=== PATIENT | female | born 1955 | race Caucasian/White ===

== ENCOUNTER 2017-02-07 06:39 | Inpatient (IN) | payer OTHER ==
[2017-01-08 14:50] VITALS: BMI 24.0
--- NOTE | 2017-01-08 15:38 | PAT Medication Instructions ---
Service Date Jan 08, 2017. Current Home Medication List Cyanocobalamin (Vitamin B-12 Inj), 1 ML IM EVERY OTHER MONTH Folic Acid (Folvite), 1 MG PO QAM Gabapentin (Neurontin), 800 MG PO BID Hydrocodon/Acetaminophen 7.5MG/300MG (Vicodin Es (7.5MG/300MG)), 1 TAB PO QID Ibuprofen (Advil), 400 MG PO QID PRN for Pain Omeprazole (Prilosec), 1 TAB PO QD@16 Thiamine Hcl (Vitamin B-1), 100 MG PO QAM Medication Instructions For Your Scheduled Surgery Cyanocobalamin (Vitamin B-12 Inj), 1 ML IM EVERY OTHER MONTH (continue as usual) - Hold the following medications 7 days prior to surgery per surgeon instructions : Ibuprofen (Advil), 400 MG PO QID PRN for Pain - Hold the following medications the morning of surgery: Thiamine Hcl (Vitamin B-1), 100 MG PO QAM Folic Acid (Folvite), 1 MG PO QAM - Take the following medications the morning of surgery with a sip of water: Hydrocodon/Acetaminophen 7.5MG/300MG (Vicodin Es (7.5MG/300MG)), 1 TAB PO QID (can take up to four hours prior to the surgery if needed) Gabapentin (Neurontin), 800 MG PO BID - Take the following medications as scheduled the afternoon/night before surgery : Omeprazole (Prilosec), 1 TAB PO QD@16 Hydrocodon/Acetaminophen 7.5MG/300MG (Vicodin Es (7.5MG/300MG)), 1 TAB PO QID Gabapentin (Neurontin), 800 MG PO BID If you have any questions please call us at [phone] or [phone] ( Mariah) or [phone]
[2017-01-08 16:19] LABS: BASO % 0.6 %; BASO ABS # 0.05 K/uL (0-0.2); EOS % 1.5 %; HEMATOCRIT 47.7 % (37-47); IG% 0.4 %; LYMPH % 23.2 %; LYMPH ABS # 1.82 K/uL (1.2-3.4); MEAN CELL VOLUME 112.2 fL (80-100); MEAN CORPUSCULAR HEMOGLOBIN 36.9 pg (25-34); MEAN CORPUSCULAR HGB CONC 32.9 g/dl (32-36); MEAN PLATELET VOLUME 9.1 fL (7.4-10.4); MONO % 7.2 %; NEUT % 67.1 %; PLATELET COUNT 225 K/uL (130-400); RED BLOOD COUNT 4.25 M/uL (4.2-5.4); WHITE BLOOD COUNT 7.83 K/uL (4.8-10.8)
--- NOTE | 2017-01-08 16:25 | DIAGNOSTIC IMAGING REPORT ---
CHEST 2 VIEWS ROUTINE CLINICAL HISTORY: PAT preoperative evaluation COMPARISON STUDY: 07/03/2016 FINDINGS: Chronic parenchymal fibrotic change throughout both hemithoraces. No acute infiltrate. Mild stable cardiomegaly. IMPRESSION: Chronic parenchymal fibrosis. Mild stable cardiomegaly. No acute process. Electronically signed by: Yovany Tolentino M.D. 01/08/2017 4:24 PM Dictated Date/Time: 01/08/2017 4:23 PM
[2017-01-08 16:28] LABS: URINE APPEARANCE CLEAR (CLEAR); URINE BILIRUBIN NEG (NEG); URINE COLOR YELLOW; URINE NITRITE NEG (NEG); URINE SPECIFIC GRAVITY 1.011 (1.000-1.030); UROBILINOGEN NEG (NEG)
[2017-01-08 16:31] LABS: MANUAL MICROSCOPIC REQUIRED? NO; REVIEW REQ? NO
[2017-01-08 16:32] LABS: PARTIAL THROMBOPLASTIN RATIO 1.1
[2017-01-08 16:37] LABS: BUN/CREATININE RATIO 10.9 (10-20); CALCIUM 8.3 mg/dl (8.5-10.1); CREATININE 0.65 mg/dl (0.60-1.20); POTASSIUM 4.3 mmol/L (3.5-5.1)
[2017-01-08 17:03] LABS: COMPLETE YES; STOMATOCYTE 1+
[2017-01-08 17:24] LABS: ESTIMATED AVERAGE GLUCOSE 105 mg/dl; HA1C FLAG Normal (Normal)
--- NOTE | 2017-01-10 07:47 | History and Physical ---
History & Physical Date of Service Jan 10, 2017. History & Physical PROCEDURE: Right knee replacement. HISTORY OF PRESENT ILLNESS: Alex is a zach 61-year-old female who presents for preoperative evaluation prior to right knee replacement. She states she has been having pain in this knee for many years now, which has gradually worsened. It has now gotten to the point that it is affecting her daily activities including walking, standing, going up and down steps. She has had previous knee arthroscopy performed in the , she also takes hydrocodone for pain. At this point in time, has failed conservative measures and would like to proceed with right knee replacement. Had her left knee replacement in July 2016 and is doing well. PAST MEDICAL HISTORY: 1. GERD. 2. History of malignant melanoma. ALLERGIES: 1. MORPHINE. 2. ETODOLAC. CURRENT MEDICATIONS: 1. Gabapentin 600 mg daily. 2. Hydrocodone 7.5/325 one to two tablets every 4-6 hours as needed. 3. Folic acid daily. 4. B complex vitamin. 5. Vitamin B12 one injection every month. PAST SURGICAL HISTORY: 1. Left knee arthroscopy in . 2. ORIF of wrist fracture in March 2016. 3. Hysterectomy. 4. . 5. Left total knee replacement July 2016 FAMILY HISTORY: Noncontributory. SOCIAL HISTORY: The patient denies a history of smoking or tobacco use. Minimal alcohol consumption. REVIEW OF SYSTEMS: Otherwise negative. Please see HPI for pertinent positives. PHYSICAL EXAMINATION: GENERAL: Zach 61-year-old female in no acute distress, alert and oriented x3. She is 5 foot 7, weighs 155 pounds. VITAL SIGNS: Blood pressure is 126/82. BMI is 24.28. HEENT: Normocephalic, atraumatic. CARDIAC: Regular rate and rhythm. No murmurs or gallops appreciated. Resting pulse 80 beats per minute. LUNGS: Clear to auscultation without rales or wheeze bilaterally. ABDOMEN: Soft and nontender. Bowel sounds present. EXTREMITIES: right lower extremity is neurovascularly intact. Calf is soft and nontender. DP pulse +2. Demonstrates good quad tone. Straight leg raise without lag. There is no erythema or warmth. Has mild effusion. Overall, has varus alignment. Positive crepitation with motion, range of motion is 0/3/120. IMAGING: Reviewed of the right knee showed findings consistent with degenerative joint disease including joint space narrowing, subchondral sclerosis and peripheral osteophytes noted which is greatest over the medial compartment. IMPRESSION: 1. Right knee degenerative joint disease. 2. Gastroesophageal reflux disease. 3. Malignant melanoma. PLAN: Further care discussed with the patient. At this point in time, would like to proceed with right knee replacement on 02/07/17. We will place on aspirin 81 mg p.o. b.i.d. for a month postop. Also discharge home with home health physical therapy.
--- NOTE | 2017-01-19 14:33 | History and Physical ---
History & Physical Date of Service Jan 19, 2017. History & Physical PROCEDURE: Right knee replacement. HISTORY OF PRESENT ILLNESS: Alex is a pleasant 61-year-old female who presents for preoperative evaluation prior to right knee replacement. She states she has been having pain in this knee for many years now, which has gradually worsened. It has now gotten to the point that it is affecting her daily activities including walking, standing, going up and down steps. At this point in time, has failed conservative measures and would like to proceed with right knee replacement. PAST MEDICAL HISTORY: 1. GERD. 2. History of malignant melanoma. ALLERGIES: 1. MORPHINE. 2. ETODOLAC. CURRENT MEDICATIONS: 1. Gabapentin 600 mg daily. 2. Folic acid daily. 3. B complex vitamin. 4. Vitamin B12 one injection every month. PAST SURGICAL HISTORY: 1. Left knee arthroscopy in . 2. ORIF of wrist fracture in March 2016. 3. Hysterectomy. 4. . 5. left knee replacement July 2016 FAMILY HISTORY: Noncontributory. SOCIAL HISTORY: The patient denies a history of smoking or tobacco use. Minimal alcohol consumption. REVIEW OF SYSTEMS: Otherwise negative. Please see HPI for pertinent positives. PHYSICAL EXAMINATION: GENERAL: Zach 61-year-old female in no acute distress, alert and oriented x3. She is 5 foot 7, weighs 155 pounds. VITAL SIGNS: Blood pressure is 132/84. BMI is 24.28. HEENT: Normocephalic, atraumatic. CARDIAC: Regular rate and rhythm. No murmurs or gallops appreciated. Resting pulse 80 beats per minute. LUNGS: Clear to auscultation without rales or wheeze bilaterally. ABDOMEN: Soft and nontender. Bowel sounds present. EXTREMITIES: Right lower extremity is neurovascularly intact. Calf is soft and nontender. DP pulse +2. Demonstrates good quad tone. Straight leg raise without lag. There is no erythema or warmth. Has mild effusion. Overall, has varus alignment. Positive crepitation with motion, range of motion is 0/3/120. IMAGING: Reviewed of the right knee showed findings consistent with degenerative joint disease including joint space narrowing, subchondral sclerosis and peripheral osteophytes noted which is greatest over the medial compartment. IMPRESSION: 1. Right knee degenerative joint disease. 2. Gastroesophageal reflux disease. 3. Malignant melanoma. PLAN: Further care discussed with the patient. At this point in time, would like to proceed with right knee replacement on 02/07/17. We will place on aspirin 81 mg p.o. b.i.d. for a month postop. Also discharge home with home health physical therapy.
[~2017-02-07] VITALS: Ht 170.2 cm; Wt 71.9 kg
[2017-02-07] VITALS (8 sets, daily range): BP systolic 130–151; BP diastolic 85–98; PULSE 86–99; TEMP 36.6–36.9; O2SAT 90–95; Ht 170.2 cm; Wt 71.9 kg
[~2017-02-07 06:39] MED LIST: ACETAMINOPHEN 500 MG TAB PO SCH; CYAN3INJ IM; CeleBREX 200 MG CAP PO SCH; DEXAMETHASONE 4 MG TAB PO SCH; FAMOTIDINE 20 MG TAB PO SCH; FOLI1TAB7 PO; GABAPENTIN 300 MG CAP PO SCH; HYDR-3714 PO; IBUP-1050 PO; LACTATED RINGER'S 1000ML IV SCH; LACTATED RINGER'S 500 ML IV SCH; METOCLOPRAMIDE HCL 10 MG TAB PO SCH; NRN/600 PO; OMEP40CA41 PO; ROPIVACAINE 5MG/ML 30 ML 150 MG, BUPIVACAINE/EPINEPHR 0.5% MPF 30 ML, KETOROLAC TROMETH... INFIL SCH; THIA100T13 PO
--- NOTE | 2017-02-07 06:51 | History & Physical Bridge Note ---
H&P Re-Evaluation Bridge Note: I have examined the patient, reviewed the History & Physical and in the interval since the performance of the History & Physical I have noted the following changes of clinical significance: No changes noted
[2017-02-07] MEDS ORDERED: ACET-1256 PO (07:23)
[2017-02-07] MEDS ORDERED: PROPOFOL IV EMULSION 10 MG/ML 20 ML VIAL IV ONE (08:02)
[2017-02-07] MEDS ORDERED: FENTANYL CITRATE INJ 50 MCG/1 ML 2 ML VIAL ONE (08:03)
[2017-02-07] MEDS ORDERED: MIDAZOLAM HCL 1 MG/ML 2ML VIAL ONE ×3 (08:03→08:58)
[2017-02-07] MEDS ORDERED: BUPIVACAINE 0.25% 30 ML VIAL ONE (08:04)
[2017-02-07] MEDS ORDERED: BUPIVACAINE 0.5 % 5 MG/1 ML PF 10ML VIAL ONE (08:04)
[2017-02-07] MEDS: TRANEXAMIC ACID INJ 1,000 MG in SODIUM CHLORIDE 0.9% 100ML 100 ML IV SCH ×2 (08:55→13:11)
[2017-02-07] MEDS: CEFAZOLIN 2000 MG/60 ML D5W 60 ML IV SCH ×2 (08:56→10:58)
[2017-02-07] MEDS ORDERED: ORTHO JOINT ANESTHETIC ONE (08:57)
[2017-02-07] MEDS ORDERED: POVIDONE-IODINE OP SOLN 30 ML BTL ONE (08:57)
[2017-02-07] MEDS ORDERED: BACITRACIN 50000 UNIT VIAL ONE (08:58)
[2017-02-07] MEDS ORDERED: ONDANSETRON INJ 2 MG/ML 2 ML VIAL IV PRN ×2 (09:45→11:15)
[2017-02-07] MEDS ORDERED: ATROPINE SULFATE 0.1 MG/ML 5ML SYR IV PRN (09:45)
[2017-02-07] MEDS ORDERED: HYDROmorphone INJ 1 MG/ML SYR IV PRN (09:45)
[2017-02-07] MEDS ORDERED: EpHEDrine SULFATE INJ 50 MG/ML AMP IV PRN (09:45)
[2017-02-07] MEDS ORDERED: KETAMINE HCL INJ 50 MG/ML 10 ML VIAL ONE (09:48)
[2017-02-07] MEDS ORDERED: ONDANSETRON INJ 2 MG/ML 2 ML VIAL ONE (10:19)
--- NOTE | 2017-02-07 10:42 | [facility] Post Operative Brief Note ---
Immediate Operative Summary Operative Date Feb 07, 2017. Pre-Operative Diagnosis Right Knee Degenerative Joint Disease Post-Operative Diagnosis Same as preop Procedure(s) Performed Right Total Knee Arthroplasty Surgeon Dr. Cooper Enamel Sprayer Surgeon(s) Yovany Kim PA-C Estimated Blood Loss 5 ml Findings severe djd knee Specimens A. Right Knee Bone and Tissue Complication(s) None Disposition Recovery Room / PACU
[2017-02-07] MEDS ORDERED: MAGNESIUM HYDROXIDE SUSP 30 ML UDC PO PRN (11:15)
[2017-02-07] MEDS ORDERED: ALUMINUM/MAGNESIUM/SIMETH (MAALOX MAX) 30 ML UDC PO PRN (11:15)
[2017-02-07] MEDS ORDERED: ZOLPIDEM TARTRATE 5 MG TAB PO PRN (11:15)
[2017-02-07] MEDS ORDERED: SOD PHOSPHATE/SOD BIPHOSPHATE ENEMA 132 ML BTL PR PRN (11:15)
[2017-02-07] MEDS ORDERED: BISACODYL 10 MG SUPP PR PRN (11:15)
--- NOTE | 2017-02-07 11:31 | OPERATIVE REPORT ---
DATE OF OPERATION: 02/07/2017 PREOPERATIVE DIAGNOSIS: Severe end-stage tricompartmental degenerative joint disease, right knee. POSTOPERATIVE DIAGNOSIS: Severe end-stage tricompartmental degenerative joint disease, right knee. PROCEDURE: Right total knee arthroplasty utilizing Weaver \T\ Nephew Journey II patient matched total knee arthroplasty size 5 femur, 3 tibia, 12 poly, 29 oval patella. SURGEON: Dr. Cooper. DONOR RELATIONS MANAGER: Yovany Kim PA-C, who was necessary for prepping, draping, retraction, wound closure of deep fascia, subcutaneous skin and was necessary for the case. ESTIMATED BLOOD LOSS: 5 mL. COMPLICATIONS: None. TOURNIQUET TIME: 40 minutes. HISTORY OF PRESENT ILLNESS: The patient presents as a very pleasant 61-year-old white female being seen and evaluated. She has recently undergone a left total knee arthroplasty successfully. She presents today for right total knee arthroplasty after failing attempts at conservative management including physical therapy, anti-inflammatories, relative rest, activity modification and bracing. She presents for right total knee arthroplasty. At the time of surgery, the above findings were noted. OPERATION AND FINDINGS: PROCEDURE: The patient was properly prepped and draped in supine position for total knee arthroplasty after identifying the appropriate surgical site. An anterior midline incision was made through the subcutaneous tissues down to the region of the extensor mechanism. A medial parapatellar incision was subsequently made. Meticulous hemostasis was obtained and performed at all times. The patella having been subluxed lateralward, medial and lateral meniscal remnants were excised. The patellar cut was then initially made and was sized to the appropriate size. After subluxing the tibia forward the appropriate meniscal fragments having been removed the distal femur was then cut first utilizing a Weaver \T\ Nephew block. The distal femoral cuts and chamfer cuts were all made under direct visualization and the proximal tibial osteotomy cut was also made utilizing Weaver \T\ Nephew blocks and checked with an extramedullary guide. The appropriate trial components on the femur and tibia were placed. Appropriate trial spacers were used to check flexion and extension gaps. With flexion and extension gaps being equal, the components were then subsequently after thorough irrigation and debridement lavage components were then subsequently cemented in the following order: femur, tibia and patella. Exparel was used for intraoperative anesthesia, the medial parapatellar incision was closed utilizing #1 Vicryl, subQ was closed with 2-0 Vicryl, skin was closed with skin clips. A sterile compression dressing was placed. The patient was taken to recovery room in stable condition. Due to the complex nature of the procedure, the entire surgery was performed with the operational assistance of Yovany Kim PA-C. The first assistant manager, under direct supervision, was involved in the actual performance of all aspects of the surgical procedure including hemostasis, tissue retraction and incision, instrument management, patient positioning, and wound closure. I attest to the content of the Intraoperative Record and any orders documented therein. Any exceptions are noted below. ELIZABETH
--- NOTE | 2017-02-07 12:15 | DIAGNOSTIC IMAGING REPORT ---
TWO VIEWS RIGHT KNEE CLINICAL HISTORY: Postoperative examination. FINDINGS: AP and crosstable lateral portable views of the right knee are obtained. A right knee arthroplasty is in near anatomic alignment. There has been undersurface remodeling of the patella. No acute fracture is seen. There are expected postoperative changes around the knee including skin clips, a surgical drain, soft tissue edema, and subcutaneous gas. IMPRESSION: Expected postoperative changes status post right knee arthroplasty. No acute fracture is seen. Electronically signed by: Catarino Lewis M.D. 02/07/2017 12:13 PM Dictated Date/Time: 02/07/2017 12:13 PM
--- NOTE | 2017-02-07 13:46 | Anesthesiology Progress Note ---
Anesthesia Post Op Note Date & Time Feb 07, 2017 at 13:45 Vital Signs Pain Intensity: 0.0 Vital Signs Past 12 Hours Date Time Temp Pulse Resp B/P Pulse Ox O2 Delivery O2 Flow Rate FiO2 02/07/17 13:15 99 130/85 02/07/17 12:40 89 18 143/93 91 Nasal Cannula 2.0 02/07/17 12:10 95 Nasal Cannula 4.0 02/07/17 12:10 95 Nasal Cannula 4.0 02/07/17 12:10 36.6 86 16 130/86 95 Nasal Cannula 4.0 02/07/17 11:55 36.8 91 16 128/87 96 Nasal Cannula 4 02/07/17 11:45 36.8 88 16 135/87 96 Nasal Cannula 4 02/07/17 11:35 89 16 129/89 93 Nasal Cannula 4 02/07/17 11:25 90 16 131/89 99 Mask 10 02/07/17 11:15 88 16 139/91 99 Mask 10 02/07/17 11:09 36.3 94 16 130/88 93 Mask 10 02/07/17 07:37 36.9 96 22 135/98 91 Room Air Notes Mental Status: alert / awake / arousable, participated in evaluation Pt Amnestic to Procedure: Yes Nausea / Vomiting: adequately controlled Pain: adequately controlled Airway Patency, RR, SpO2: stable & adequate BP & HR: stable & adequate Hydration State: stable & adequate Anesthetic Complications: no major complications apparent
[2017-02-07] MEDS: OXYCODONE HCL IR 5 MG TAB (IMMEDIATE RELEASE) PO PRN ×2 (13:58→19:54)
[2017-02-07] MEDS: D5W AND 1/2NSS + 20MEQ KCL 1,000 ML IV SCH ×2 (14:11→23:28)
[2017-02-07] MEDS: CEFAZOLIN IV 2,000 MG in DEXTROSE 5% 50ML 50 ML IV SCH (18:12)
[2017-02-07] MEDS: KETOROLAC TROMETHAMINE 30 MG/ML VIAL IV. PRN (18:24)
[2017-02-07] MEDS: ASPIRIN 81 MG ECTAB PO SCH (20:53)
[2017-02-07] MEDS: DOCUSATE SODIUM 100 MG CAP PO SCH (20:53)
[2017-02-07] MEDS: OXYCODONE HCL 10 MG TABCR (OXYCONTIN) PO SCH (20:53)
[2017-02-07] MEDS: SENNA 8.6 MG TAB PO SCH (20:54)
[2017-02-07] MEDS ORDERED: CeleBREX 200 MG CAP PO SCH (21:00)
[2017-02-07] MEDS: GABAPENTIN 800 MG TAB PO SCH (23:28)
[2017-02-08] MEDS: CEFAZOLIN IV 2,000 MG in DEXTROSE 5% 50ML 50 ML IV SCH (02:21)
[2017-02-08] MEDS: KETOROLAC TROMETHAMINE 30 MG/ML VIAL IV. PRN (02:22)
[2017-02-08 03:35] VITALS: BP 123/77; PULSE 90; TEMP 36.8; O2SAT 93
[2017-02-08] MEDS ORDERED: NURSING DECISION MEDICATION ORDER SCH ×2 (04:45→11:00)
[2017-02-08] MEDS ORDERED: COUGH DROP (SUGAR FREE) LOZ 24 LOZ/1 BOX PO PRN (05:00)
[2017-02-08 06:33] LABS: HEMATOCRIT 44.1 % (37-47); MEAN CELL VOLUME 107.3 fL (80-100); MEAN CORPUSCULAR HEMOGLOBIN 36.5 pg (25-34); MEAN PLATELET VOLUME 9.2 fL (7.4-10.4); PLATELET COUNT 166 K/uL (130-400); RED BLOOD COUNT 4.11 M/uL (4.2-5.4); WHITE BLOOD COUNT 13.43 K/uL (4.8-10.8)
[2017-02-08 06:43] LABS: INR 0.9 (0.9-1.1)
[2017-02-08 07:05] LABS: BUN/CREATININE RATIO 9.1 (10-20); CALCIUM 8.5 mg/dl (8.5-10.1); CREATININE 0.71 mg/dl (0.60-1.20); POTASSIUM 4.8 mmol/L (3.5-5.1)
[2017-02-08 07:54] VITALS: BP 126/78; PULSE 89; TEMP 36.9; O2SAT 91
--- NOTE | 2017-02-08 08:10 | Anesthesiology Progress Note ---
Anesthesia Post Op Note Date & Time Feb 08, 2017 at 08:09 Vital Signs Pain Intensity: 7.0 Vital Signs Past 12 Hours Date Time Temp Pulse Resp B/P Pulse Ox O2 Delivery O2 Flow Rate FiO2 02/08/17 07:54 36.9 89 16 126/78 91 Room Air 02/08/17 03:35 36.8 90 18 123/77 93 Room Air 02/07/17 23:45 36.6 88 18 140/87 91 Room Air Notes Mental Status: alert / awake / arousable, participated in evaluation Pt Amnestic to Procedure: Yes Nausea / Vomiting: adequately controlled Pain: adequately controlled Airway Patency, RR, SpO2: stable & adequate BP & HR: stable & adequate Hydration State: stable & adequate Neuraxial Anesthesia: sensory block resolved Anesthetic Complications: no major complications apparent
[2017-02-08] MEDS: ASPIRIN 81 MG ECTAB PO SCH ×2 (09:08→21:19)
[2017-02-08] MEDS: OXYCODONE HCL 10 MG TABCR (OXYCONTIN) PO SCH ×2 (09:08→21:17)
[2017-02-08] MEDS: DOCUSATE SODIUM 100 MG CAP PO SCH ×2 (09:08→21:19)
[2017-02-08] MEDS: PANTOprazole SOD 40 MG TAB PO SCH (09:08)
[2017-02-08] MEDS: THIAMINE HCL 100 MG TAB PO SCH (09:08)
[2017-02-08] MEDS: MULTIVITAMIN TAB PO SCH (09:09)
[2017-02-08] MEDS: OXYCODONE HCL IR 5 MG TAB (IMMEDIATE RELEASE) PO PRN ×4 (09:17→22:15)
[2017-02-08 11:36] VITALS: BP 114/74; PULSE 87; TEMP 36.7; O2SAT 95
[2017-02-08 11:46] VITALS: BP 131/70; PULSE 98; O2SAT 94
[2017-02-08] MEDS: GABAPENTIN 800 MG TAB PO SCH ×2 (12:04→23:59)
[2017-02-08 15:10] VITALS: BP 121/80; PULSE 86; TEMP 36.7; O2SAT 92
--- NOTE | 2017-02-08 16:40 | Orthopedic Progress Note ---
Orthopedic Progress Note Date of Service Feb 08, 2017. Subjective Post OP Day: 1 Reports: feeling well, Denies: SOB, calf pain, chest pain, light headedness, nausea / vomiting Objective calves soft nontender, N/V intact, dressing C/D/I, A&O x3, toes mobile, hemovac drainage (350ml to date) Date Time Temp Pulse Resp B/P Pulse Ox O2 Delivery O2 Flow Rate FiO2 02/08/17 15:10 36.7 86 20 121/80 92 Room Air 02/08/17 11:46 98 94 02/08/17 11:36 36.7 87 16 114/74 95 Room Air 02/08/17 09:00 Room Air 02/08/17 07:54 36.9 89 16 126/78 91 Room Air 02/08/17 03:35 36.8 90 18 123/77 93 Room Air 02/07/17 23:45 36.6 88 18 140/87 91 Room Air 02/07/17 20:00 Room Air 02/07/17 19:45 36.6 87 18 151/98 91 Room Air Laboratory Results 24 Hours: Test 02/08/17 06:15 Hematocrit 44.1 % Hemoglobin 15.0 g/dL Prothromb Time International Ratio 0.9 Prothrombin Time 10.0 SECONDS Assessment & Plan Assessment: POD 1 s/p Right TKA Plan: PT/OT Planning for dc tomorrow with Home Health Services. Inhouse Planning Pain Management: Oxycontin, Oxy IR DVT Prophylaxis: TEDs, SCDs, ASA Discharge Planning Discharge Planning: home with home health Pain Management: Oxycontin, Oxy IR DVT Prophylaxis: TEDs, ASA
[2017-02-08] MEDS ORDERED: NURSING VERBAL MED ORDER ONE (20:15)
[2017-02-08] MEDS ORDERED: OXYCODONE HCL 10 MG TABCR (OXYCONTIN) PO ONE (20:45)
[2017-02-08] MEDS: SENNA 8.6 MG TAB PO SCH (21:19)
[2017-02-08 23:47] VITALS: BP 122/84; PULSE 90; TEMP 36.7; O2SAT 92
[2017-02-09] MEDS: OXYCODONE HCL IR 5 MG TAB (IMMEDIATE RELEASE) PO PRN ×4 (02:04→14:28)
[2017-02-09 06:38] VITALS: BP 102/67; PULSE 92; TEMP 36.7; O2SAT 92
[2017-02-09] MEDS: GABAPENTIN 800 MG TAB PO SCH (07:42)
[2017-02-09] MEDS: THIAMINE HCL 100 MG TAB PO SCH (07:42)
[2017-02-09] MEDS: PANTOprazole SOD 40 MG TAB PO SCH (07:42)
[2017-02-09] MEDS: MULTIVITAMIN TAB PO SCH (07:42)
[2017-02-09] MEDS: DOCUSATE SODIUM 100 MG CAP PO SCH (07:43)
[2017-02-09] MEDS: ASPIRIN 81 MG ECTAB PO SCH (07:43)
[2017-02-09] MEDS ORDERED: OXYCODONE HCL 20 MG TABCR (OXYCONTIN) PO SCH ×2 (08:00→09:00)
[2017-02-09] MEDS ORDERED: KETOROLAC TROMETHAMINE 30 MG/ML VIAL IV PRN (08:30)
[2017-02-09] MEDS ORDERED: LORAZEPAM INJ 0.5 MG in SYRINGE 0.25 ML IV PRN (08:45)
--- NOTE | 2017-02-09 08:46 | Orthopedic Progress Note ---
Orthopedic Progress Note Date of Service Feb 09, 2017. Subjective Post OP Day: 2 Denies: SOB, calf pain, chest pain, light headedness, nausea / vomiting Additional Notes: Poor pain control this AM. Pt states she did too much yesterday with PT and on her own. Not sleeping much due to knee pain and also chronic back pain. Oxycontin increased. Pt is somewhat emotional this AM. Discussed pain medications and plans for discharge today if pain is more controlled or tomorrow. No other complaints. Objective calves soft nontender, N/V intact, dressing C/D/I (Prevena with bloody drainage in dressing window but no draining), A&O x3, toes mobile Date Time Temp Pulse Resp B/P Pulse Ox O2 Delivery O2 Flow Rate FiO2 02/09/17 06:38 36.7 92 18 102/67 92 Room Air 02/08/17 23:50 Room Air 02/08/17 23:47 36.7 90 16 122/84 92 Room Air 02/08/17 16:00 Room Air 02/08/17 15:10 36.7 86 20 121/80 92 Room Air 02/08/17 11:46 98 94 02/08/17 11:36 36.7 87 16 114/74 95 Room Air 02/08/17 09:00 Room Air Assessment & Plan Assessment: POD 2 s/p Right TKA Pain control issues Anxious Plan: PT/OT Oxycontin increased earlier to 20mg bid. Toradol added. Low dose Ativan added TID prn. Morphine causes n/v and previous bad experience with Dilaudid Will give Toradol now. Recheck later today. Discussed that if her pain is not controlled, we will keep her one more day if needed but hopeful for DC later today. Inhouse Planning Pain Management: Toradol, Oxycontin, Oxy IR DVT Prophylaxis: TEDs, SCDs, ASA Discharge Planning Discharge Planning: home with home health Pain Management: Oxycontin, Oxy IR DVT Prophylaxis: TEDs, ASA Therapy: Physical Therapy
[2017-02-09] MEDS: KETOROLAC TROMETHAMINE 30 MG/ML VIAL ONE ×2 (08:51→09:07)
--- NOTE | 2017-02-09 08:54 | Discharge Instructions ---
Discharge Instructions Date of Service Feb 09, 2017. Admission Reason for Admission: Right Knee Osteoarthritis Discharge Discharge Diagnosis / Problem: Right Knee Djd Discharge Goals Goal(s): Decrease discomfort, Improve function Activity Recommendations Activity Limitations: per Instructions/Follow-up section Weightbearing Status: Right weightbearing (as tolerated) . Instructions / Follow-Up Instructions / Follow-Up ACTIVITY RECOMMENDATIONS: SELF CARE INSTRUCTIONS AFTER TOTAL KNEE REPLACEMENT A. You may need to continue a physical therapy program after discharge from the hospital. There are several options available to you. Your doctor will assist you in selecting the best one for you. 1. An out-patient facility 2 to 3 times a week for therapy or home therapy. 2. Continue working on all exercises taught to you in the hospital. Your goals should be to increase bending of your knee to 90 degrees and beyond and to fully straighten your knee. B. You may progress at your own pace from walking with a walker or crutches to a cane; then to no assistive devices. C. Make walking a part of your daily routine. Be up as much as comfortable with rest periods throughout the day. Rest with leg elevation is very important. Use the ice wrap frequently for the first 3-4 weeks. D. There are no restrictions on activities. You may ride in a car, shop, participate in child care worker and all social activities. E. Wear the long elastic stockings (GIL hose) 20 hours a day for 2 weeks after surgery. They can be removed several times a day for laundering and for a bath. F. You may shower, no tub baths until cleared by your doctor. SPECIAL CARE INSTRUCTIONS: VERY IMPORTANT TO READ AND REVIEW A. There are a few signs you need to watch for after you are home. Call [facility] if you notice any of the followin. Increased severe knee pain. Some pain is expected especially when you exercise. 2. Increased swelling in your leg or knee; pain or swelling of the calf muscle in either lower leg. 3. Any fluid drainage from the incision. 4. Shortness of breath or chest pain. B. Please call [facility] at if you have any concerns or questions about your operation or recovery. The doctor or his nurse will return your call promptly. C. You must take antibiotics before dental work, bladder, bowel or other surgery. Your doctor will provide you with a permanent care to carry describing this precaution. IMPORTANT: * REMEMBER TO TAKE ASPIRIN, 81 MG, TWICE DAILY FOR 4 WEEKS UNLESS OTHERWISE DIRECTED. THIS IS YOUR BLOOD THINNER. * HIGH RISK PATIENTS MAY BE PRESCRIBED A STRONGER BLOOD THINNER. THIS WILL BE PROVIDED AT DISCHARGE. * CALL IF INCREASED PAIN, REDNESS, DRAINAGE OR FEVER GREATER THAT 101. * WEAR GIL HOSE 20 HOURS PER DAY FOR 2 WEEKS. * Silverlon- This is a large adhesive bandage that contains silver ions. This helps your incision heal by fighting off bacteria and protecting it from the outside environment. You are permitted to shower with this dressing. This will remain on your incision for 7 days and then should be removed. Some visible blood or drainage through the dressing window is normal. If there is significant drainage or leaking noted before the 7 days notify your doctor's office immediately. Once removed, keep incision clean and dry. If there is any drainage or redness noted, please call your surgeon. . FOLLOW UP VISIT: If appointment is not already scheduled: Please call [facility] to make a follow-up appointment for 2 weeks after your surgery at . Current Hospital Diet Patient's current hospital diet: Regular Diet Discharge Diet Recommended Diet: Regular Diet Procedures Procedures Performed: Right Total Knee Arthroplasty Pending Studies Studies pending at discharge: no Laboratory Results Hemoglobin A1c Test 01/08/17 15:45 Range/Units Estimated Average Glucose 105 mg/dl Hemoglobin A1c 5.3 4.5-5.6 % Medical Emergencies . Who to Call and When: Medical Emergencies: If at any time you feel your situation is an emergency, please call 911 immediately. . Non-Emergent Contact Non-Emergency issues call your: Surgeon Call Non-Emergent contact if: temperature is above 101.5, your pain is not controlled, your pain is worsening, wound has increased drainage, wound has increased redness . "Provider Documentation" section prepared by Con Ferrer. . VTE Core Measure Inpt VTE Proph given/why not?: Other Anticoagulation, T.E.D. Stockings, SCD's [place] Drug Monitoring Program Search Results: patient reviewed within database, see additional documentation Drug Monitoring Findings: Receiving monthly Lortab Rx from practioner in [facility]
[2017-02-09] MEDS ORDERED: KETOROLAC TROMETHAMINE 30 MG/ML VIAL IV ONE (09:00)
[2017-02-09] MEDS ORDERED: RXC5 PO (09:00)
[2017-02-09] MEDS ORDERED: ACET-1138 PO (09:00)
[2017-02-09] MEDS ORDERED: SNK PO (09:00)
[2017-02-09] MEDS ORDERED: CLB200 PO (09:00)
[2017-02-09] MEDS ORDERED: OXYSR/20 PO (09:00)
[2017-02-09] MEDS ORDERED: ONDA8TAB6 PO (09:00)
[2017-02-09] MEDS ORDERED: ACETAMINOPHEN 500 MG TAB PO SCH (14:00)
[2017-02-09 14:05] VITALS: BP 102/67; PULSE 92; TEMP 36.7; O2SAT 92
--- NOTE | 2017-02-09 19:39 | Discharge Summary ---
Orthopedic Discharge Summary Admission Date/Reason Feb 07, 2017 at 07:00 Right Knee Osteoarthritis. Discharge Date/Disposition Feb 09, 2017 Home with services Diagnosis Principal Diagnosis: right knee osteoarthritis Procedure(s) Performed PROCEDURE: Right total knee arthroplasty utilizing Weaver \T\ Nephew Jensenmacon II patient matched total knee arthroplasty size 5 femur, 3 tibia, 12 poly, 29 oval patella. Consultations NONE Medication Reconciliation New Medications: Ondansetron Hcl (Zofran) 8 Mg Tab 8 MG PO TID PRN for Nausea, #20 TAB Acetaminophen (Tylenol Extra Strength) 500 Mg Tab 1000 MG PO Q8 for 30 Days, #180 TAB Celecoxib (Celebrex) 200 Mg Cap 200 MG PO BID, #60 CAP Oxycodone HCl (Oxycontin) 20 Mg Tabcr 20 MG PO BID@0800,2000, #20 Oxycodone HCl (Oxycodone HCl) 5 Mg Tab 5-10 MG PO Q4H PRN for Pain, #60 TAB Senna (Senna Lax) 8.6 Mg Tab 17.2 MG PO HS, #30 TAB Hold for loose stools Continued Medications: Cyanocobalamin (Vitamin B-12 Inj) Inj 1 ML IM EVERY OTHER MONTH for 30 Days, #1 VIAL LAST INJECTION WAS FALL 2015 Folic Acid (Folvite) 1 Mg Tab 1 MG PO QAM, TAB Gabapentin (Neurontin) 600 Mg Tab 800 MG PO BID, TAB TAKES AT NOON AND MIDNIGHT Omeprazole (Prilosec) 40 Mg Cap 1 TAB PO QD@16, CAP Thiamine Hcl (Vitamin B-1) 100 Mg Tab 100 MG PO QAM, TAB Discontinued Medications: Acetaminophen (Tylenol) 500 Mg Tab 2 TAB PO Q6 for 2 Days, #20 TAB 3 Refills Hydrocodon/Acetaminophen 7.5MG/300MG (Vicodin Es (7.5MG/300MG)) 1 Tab Tab 1 TAB PO QID, TAB Ibuprofen (Advil) 200 Mg Tab 400 MG PO QID PRN for Pain, TAB Admission Physical Exam As per Admitting History & Physical. Hospital Course Patient was a same day admission after undergoing a successful right TKA. she tolerated the procedure well. Post-operatively, her activity was progressed and well tolerated. Please refer to daily progress notes and PT notes for complete details. After exam on 02/09/17, patient felt to be stable for discharge home with HHPT. Patient will f/u in the office in 2 weeks for further evaluation including x-rays and incision check, sooner if having any issues or concerns. Below are pertinent labs/studies during their hospital stay: Last Resulted CBC 02/08/17 06:15 Last Resulted BMP 02/08/17 06:15 Last Vital Signs Documentation Date Time Temp Pulse Resp B/P Pulse Ox O2 Delivery O2 Flow Rate FiO2 02/09/17 14:05 36.7 92 18 92 Room Air 02/09/17 06:38 102/67 02/07/17 14:10 2.0 Discharge Instructions Please refer to the electronic Patient Visit Report (Discharge Instructions) for additional information.
== END 2017-02-09 15:50 | disposition home health service (06) | DRG 470 ==
LOC: ENRESERVTM → ENRESERVDT → C.ACU 06:39 → C.MSN 07:00
PROVIDERS: ADMIT Orthopaedic Surgery; ATTEND Orthopaedic Surgery
PROC: 0SRC0J9 Replacement of Right Knee Joint with Synthetic Substitute, Cemented, Open Approach (ICD-10-PCS; principal; 2017-02-07 09:15)
DX: M17.11 Unilateral primary osteoarthritis, right knee (principal); M25.461 Effusion, right knee; G89.18 Other acute postprocedural pain; G89.29 Other chronic pain; M54.9 Dorsalgia, unspecified; G62.9 Polyneuropathy, unspecified; K21.9 Gastro-esophageal reflux disease without esophagitis; F17.200 Nicotine dependence, unspecified, uncomplicated; Z96.652 Presence of left artificial knee joint; Z79.891 Long term (current) use of opiate analgesic; Z79.899 Other long term (current) drug therapy